=== PATIENT | female | born 1985 | race African-American/Black ===

== ENCOUNTER 2017-10-31 15:22 | Emergency (ER) | payer OTHER ==
[2017-10-31 15:36] VITALS: BP 98/50; PULSE 93; TEMP 98.1; BMI 27.6
--- NOTE | 2017-10-31 15:36 | PDOC ---
Rapid Medical Evaluation Time Seen by Provider: 10/31/17 15:32 Medical Evaluation: Allergies Allergy/AdvReac Type Severity Reaction Status Date / Time No Known Allergies Allergy Verified 10/31/17 15:33 10/31/17 15:33 I have performed a brief in-person evaluation of this patient. The patient presents with a chief complaint of:suture removal to L knee Pertinent physical exam findings:stable and well carolyn w/ dressing in place to L knee, ambulating w/ crutches I have ordered the following:nothing The patient will proceed to the ED for further evaluation. Discharge Disposition - Diagnosis Visit for suture removal - Referrals - Patient Instructions - Post Discharge Activity
--- NOTE | 2017-10-31 16:07 | PDOC ---
Suture Removal/Wound Check HPI - History of Present Illness Chief Complaint: Suture/Staple Removal (other) Stated Complaint: SUTURE REMOVAL Time Seen by Provider: 10/31/17 15:32 History Source: Yes: Patient Exam Limitations: Yes: No Limitations Treated at: [facility] ED Date of Last ED visit: 10/22/17 - Previous ED Treatment Type of procedure performed on last visit: Yes: Laceration Repair Tetanus Immunization: Yes: Given at last ED visit Antibiotics Prescribed: Yes Past History - Travel Traveled outside of the country in the last 30 days: No - Past Medical History Allergies/Adverse Reactions: Allergies Allergy/AdvReac Type Severity Reaction Status Date / Time No Known Allergies Allergy Verified 10/31/17 15:33 Home Medications: Ambulatory Orders NK [No Known Home Medication] 10/31/17 Anemia: No COPD: No Other medical history: denies. - Suicide/Smoking/Psychosocial Hx Smoking History: Never smoked Have you smoked in the past 12 months: No Hx Alcohol Use: No Drug/Substance Use Hx: No Substance Use Type: None Patient Lives Alone: No Lives with/in: spouse/SO Suture Removal/Wound Check PE - Physical Exam Laceration/Wound Check Symptoms: reports: None Current Severity Level: None Maximum Severity Level: None Pain Localization: None Location of Laceration/Wound: right: Knee *Review of Systems - Review of Systems Constitutional: No: Symptoms Reported Musculoskeletal: Yes: Joint Swelling Integumentary: Yes: Bruising Neurological: No: Symptoms reported *Physical Exam - Vital Signs Last Vital Signs Temp Pulse Resp BP Pulse Ox 98.1 F 93 H 19 98/50 98 10/31/17 15:33 10/31/17 15:33 10/31/17 15:33 10/31/17 15:33 10/31/17 15:33 - Physical Exam General Appearance: Yes: Nourished, Appropriately Dressed. No: Apparent Distress Vascular Pulses: Doralis-Pedis (L): 2+ Extremity: positive: Normal Capillary Refill, Normal Inspection. negative: Normal Range of Motion (Unable to flex at the left patellar joint), Pedal Edema Integumentary: positive: Swelling, Bruising (over left patella) Neurologic: positive: Motor Strength 5/5 Medical Decision Making - Medical Decision Making 10/31/17 16:06 Removed the lateral aspect of running stitch approximately 5 stitches in until I stop secondary to edema, ecchymosis and incomplete healing of laceration. Area reinforced with Steri-Strips patient recommended to wear knee immobilizer to promote healing and prevent bending *DC/Admit/Observation/Transfer Diagnosis at time of Disposition: Visit for suture removal - Discharge Dispostion Disposition: HOME Condition at time of disposition: Good - Referrals Referrals: Stacy Diaz [Primary Care Provider] - - Patient Instructions Printed Discharge Instructions: How to Care for a Surgical Wound Additional Instructions: Please use knee immobilizer during the day remove at night to help promote healing and prevent bending. Please return here in 7 days for complete suture removal - Post Discharge Activity
== END 2017-10-31 16:14 | disposition home or self-care (01) ==
LOC: JERFT 15:22
DX: Z48.02 Encounter for removal of sutures (principal)
CPT/HCPCS: 99281-25